=== PATIENT | female | born 1975 | race Hispanic/Latino ===

== ENCOUNTER → 2022-09-19 | Day surgery (SDC) | payer OTHER ==
[~2022-09-19] VITALS: Ht 160 cm; Wt 59.9 kg
[2022-09-19 09:43] VITALS: BP 109/66
== END | disposition home or self-care (01) | DRG 951 ==
LOC: ENDO 08:02
PROVIDERS: ATTEND Surgery
PROC: 0DJD8ZZ Inspection of Lower Intestinal Tract, Via Natural or Artificial Opening Endoscopic (ICD-10-PCS; principal; 2022-09-19)
DX: Z12.11 Encounter for screening for malignant neoplasm of colon (principal); K64.8 Other hemorrhoids